=== PATIENT | male | born 1955 | race African-American/Black ===

== ENCOUNTER 2019-02-12 21:02 | Emergency (ER) | payer SELFPAY ==
[~2019-02-12] VITALS: Ht 182.9 cm; Wt 76.9 kg
[~2019-02-12 21:02] MED LIST: ALBU8.5H8 INH; ASPI81TA52 PO; BUPR150T6 PO; FEXO180T13 PO; FURO-109 PO; FURO20TA3 PO; LATA2.5D2 BOTH EYES; LISI2.5T59 PO; METO-448 PO; POTA10TA37 PO; RANI150T5 PO; ZIPR60CA7 PO
[2019-02-12 21:03] VITALS: Ht 182.9 cm; Wt 76.9 kg
[2019-02-13] MEDS ORDERED: HYDROCODONE/APAP (10/325) TAB PO ONE (04:00)
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
[2019-02-13] MEDS ORDERED: TRAM50TA2 PO (04:48)
[2019-02-13 11:31] VITALS: BP 101/75; PULSE 86; RESP 19
== END 2019-02-13 11:54 | disposition home or self-care (01) ==
LOC: E/R 21:02
DX: R07.1 Chest pain on breathing (principal); I11.0 Hypertensive heart disease with heart failure; I50.9 Heart failure, unspecified; Z95.0 Presence of cardiac pacemaker; Z79.82 Long term (current) use of aspirin
CPT/HCPCS: 71045